=== PATIENT | female | born 1965 | race Caucasian/White ===

== ENCOUNTER 2023-09-24 19:19 | Inpatient (IN) | payer SELFPAY ==
[2023-09-24] MEDS ORDERED: Ipratropium/Albuterol 3 ML NEB ONE (19:43)
[2023-09-24] MEDS ORDERED: LevoFLOXacin 750 mg/D5W 150 ml Premix Bag ONE (19:46)
[2023-09-24] MEDS ORDERED: Dexamethasone 10 MG/ML VIAL ONE (19:46)
[2023-09-24 19:55] LABS: Actual Bicarbonate (HCO3a) 25.6 mEq/L (22-28); Analyzer IN Cardio ER; Base Excess (BEa) -1.9 mEq/L (-2.0 to +3.0); Calcium, Ionized (arterial) 1.16 mmol/L (1.12-1.30); Carboxyhemoglobin (COHb) 0.8 gm% (0.0-3.0); Hematocrit-ABG 44 % (36.0-47.0); Hemoglobin (Hb) 14.9 g/dL (12.0-16.0); O2 Tension (PaO2), arterial 144.8 mmHg (> 80.0); pH, Arterial 7.293 (7.35-7.45)
[2023-09-24 20:39] LABS: SARS-CoV-2 NAA Rapid Test Not Detected (NotDetected)
[2023-09-24 21:02] LABS: #Basophils 0.1 thou/uL (0.0-0.2); #Eosinphils 0.5 thou/uL (0.0-0.7); #Monocytes 0.4 thou/uL (0.11-0.59); #Neutrophils 8.1 thou/uL (1.40-6.50); %Basophils 0.7 % (0.0-1.0); %Eosinophils 4.5 % (0.0-10.0); %Lymphocytes 14.2 % (21.0-51.0); %Monocytes 3.9 % (0.0-10.0); %Neutrophils 76.2 % (42.0-75.0); Hematocrit 44.2 % (36.0-47.0); Hemoglobin 14.2 g/dL (12.0-16.0); Mean Corpuscular HGB CONC 32.1 g/dL (32.0-36.0); Mean Corpuscular Volume 90.4 fl (78.0-98.0); Mean Platelet Volume 12.2 fL (7.4-10.4); Platelet Count 191 10x3/uL (130-400); RBC Distribution Width 13.3 % (11.5-14.5); Red Blood Cell (RBC) Count 4.89 mill/uL (4.20-5.40); White Blood Cell (WBC) Count 10.6 10x3/uL (4.8-10.8)
[2023-09-24 21:25] LABS: ALT (SGPT) 11 U/L (8-55); AST (SGOT) 15 U/L (5-34); Albumin 4.1 g/dL (3.5-5.0); Alkaline Phosphatase 78 U/L (40-110); Anion Gap 13 mmol/L (10-20); BUN (Urea Nitrogen) 6 mg/dL (9.8-20.1); Bilirubin, Total 0.2 mg/dL (0.2-1.2); Calc. Creatinine Clearance 0 mL/min (70-130); Calcium 8.5 mg/dL (7.8-10.44); Carbon Dioxide 28 mmol/L (22-29); Chloride 104 mmol/L (98-107); Estimated GFR 100; Globulin 2.6 g/dL (2.4-3.5); Glucose 126 mg/dL (70-105); Lipase 7 U/L (8-78); Potassium 3.5 mmol/L (3.5-5.1); Protein, Total 6.7 g/dL (6.0-8.3); Sodium 141 mmol/L (136-145)
[2023-09-24 21:30] LABS: Troponin I 0.011 ng/mL (< 0.028)
[2023-09-24] MEDS ORDERED: Ondansetron ODT 4 MG TAB SL PRN (22:15)
[2023-09-24] MEDS ORDERED: Ondansetron PF 4 MG/2 ML Vial IVP PRN (22:15)
[2023-09-24] MEDS ORDERED: Ipratropium/Albuterol 3 ML NEB NEB PRN (22:18)
[2023-09-24] MEDS ORDERED: Calcium Carbonate 500 MG ChewTAB PO PRN (23:09)
[2023-09-24] MEDS ORDERED: Acetaminophen 325 MG TAB PO PRN (23:09)
[2023-09-24 23:37] LABS: Puncture Site RBA
[2023-09-25 00:48] LABS: Bacteria/HPF None Seen HPF (None Seen); Bilirubin Negative (Negative); Blood, Urine 1+ (Negative); CAUTI Indications for Culture Pelvic or flank pain; Clarity Turbid (Clear); Glucose, Urine (Dipstick) 30 mg/dL (Negative); Ketone, Urine Negative (Negative); Leukocyte 250 Leu/uL (Negative); Nitrite Negative (Negative); Protein, Urine (Dipstick) Negative (Neg-Trace); RBC/HPF 0-3 HPF (0-3); Specific Gravity, Urine 1.018 (1.002-1.036); Urobilinogen Normal mg/dL (Less than 2)
[2023-09-25 00:53] LABS: Urine Culture Reflex No No
[2023-09-25 04:58] VITALS: BMI 35.1
[2023-09-25 06:05] LABS: Anion Gap 11 mmol/L (10-20); BUN (Urea Nitrogen) 5 mg/dL (9.8-20.1); Calc. Creatinine Clearance 131 mL/min (70-130); Calcium 8.9 mg/dL (7.8-10.44); Carbon Dioxide 29 mmol/L (22-29); Chloride 104 mmol/L (98-107); Estimated GFR 101; Glucose 157 mg/dL (70-105); Potassium 4.4 mmol/L (3.5-5.1); Sodium 140 mmol/L (136-145)
[2023-09-25 06:41] LABS: #Monocytes 0.1 thou/uL (0.11-0.59); #Neutrophils 4.8 thou/uL (1.40-6.50); %Basophils 0.2 % (0.0-1.0); %Lymphocytes 9.5 % (21.0-51.0); %Monocytes 0.9 % (0.0-10.0); %Neutrophils 88.8 % (42.0-75.0); Hematocrit 43.5 % (36.0-47.0); Hemoglobin 13.8 g/dL (12.0-16.0); Mean Corpuscular HGB CONC 31.7 g/dL (32.0-36.0); Mean Corpuscular Hemoglobin 29.2 pg (27.0-31.0); Mean Platelet Volume 12.2 fL (7.4-10.4); Platelet Count 191 10x3/uL (130-400); RBC Distribution Width 13.3 % (11.5-14.5); Red Blood Cell (RBC) Count 4.73 mill/uL (4.20-5.40); White Blood Cell (WBC) Count 5.4 10x3/uL (4.8-10.8)
[2023-09-25] MEDS ORDERED: Dexamethasone 10 MG/ML VIAL SLOW IVP SCH (09:00)
[2023-09-25] MEDS ORDERED: Dexamethasone 10 MG/ML VIAL ONE (09:13)
[2023-09-25] MEDS ORDERED: Famotidine 20 MG TAB ONE (09:14)
[2023-09-25] MEDS ORDERED: methylPREDNISolone Sod Succ 40 MG VIAL ONE (09:14)
[2023-09-25] MEDS: methylPREDNISolone Sod Succ 40 MG VIAL IVP SCH ×2 (10:35→20:11)
[2023-09-25] MEDS: Famotidine 20 MG TAB PO SCH ×2 (10:35→20:11)
[2023-09-25] MEDS: Sodium Chloride 0.9% 1,000 ML IV SCH ×2 (12:26→17:32)
[2023-09-25] MEDS ORDERED: hydrALAZINE 20 MG/ML VIAL SLOW IVP PRN (17:19)
[2023-09-25] MEDS ORDERED: Amlodipine 5 MG TAB PO SCH (17:30)
[2023-09-25] MEDS: Cefdinir 300 MG CAP PO SCH (20:11)
[2023-09-25] MEDS: Ipratropium/Albuterol 3 ML NEB NEB PRN (20:28)
[2023-09-26 03:18] VITALS: TEMP 98
[2023-09-26] MEDS: Cefdinir 300 MG CAP PO SCH (08:35)
[2023-09-26] MEDS: methylPREDNISolone Sod Succ 40 MG VIAL IVP SCH (08:36)
[2023-09-26] MEDS: Famotidine 20 MG TAB PO SCH (08:36)
[2023-09-26] MEDS ORDERED: Amlodipine 5 MG TAB PO SCH (09:00)
[2023-09-26] MEDS: Ipratropium/Albuterol 3 ML NEB NEB PRN (10:10)
[2023-09-26 12:07] VITALS: BP 124/70
== END 2023-09-26 15:15 | disposition home or self-care (01) | DRG 189 ==
LOC: ERS 19:19 → ERHOLD 23:09 → 2NO 09-25 17:39
PROVIDERS: ADMIT Student in an Organized Health Care Education/Training Program; ATTEND Family Medicine
PROC: 4A033R1 Measurement of Arterial Saturation, Peripheral, Percutaneous Approach (ICD-10-PCS; principal; 2023-09-24)
PROC: 5A09357 Assistance with Respiratory Ventilation, Less than 24 Consecutive Hours, Continuous Positive Airway Pressure (ICD-10-PCS; 2023-09-24)
DX: J96.01 Acute respiratory failure with hypoxia (principal); J44.1 Chronic obstructive pulmonary disease with (acute) exacerbation; M32.9 Systemic lupus erythematosus, unspecified; I10 Essential (primary) hypertension; Z98.51 Tubal ligation status; Z88.5 Allergy status to narcotic agent; Z87.891 Personal history of nicotine dependence; Z11.52 Encounter for screening for COVID-19
CPT/HCPCS: 36415; 36600; 71045; 80048; 80053; 81001; 82805; 83605; 83690; 83880; 84484; 85025; 87040; 93005; 94640; 94644; 94660; 96361; 96365; 96375; J1100; J1956; J2920; J7050; J7611; J7620